=== PATIENT | male | born 1970 | race Caucasian/White ===

== ENCOUNTER 2023-12-14 13:05 | Emergency (ER) | payer BC ==
[2023-12-14] MEDS ORDERED: HYDROCODONE/APAP 10/325 TAB ONE (13:56)
[2023-12-14] MEDS ORDERED: dexAMETHasone 10 MG/ML VIAL ONE (13:56)
--- NOTE | 2023-12-14 14:04 | RAD REPORT ---
EXAM DESCRIPTION: CT - Spine Lumbar Wo Con - 12/14/2023 1:53 pm CLINICAL HISTORY: Radiculopathy. PAIN COMPARISON: No comparisons TECHNIQUE: Axial noncontrast CT imaging of the lumbar spine was performed with coronal and sagittal re-formatted images. All CT scans are performed using dose optimization technique as appropriate and may include automated exposure control or mA/KV adjustment according to patient size. FINDINGS: No acute lumbar spine fracture seen. No aggressive marrow pattern or malalignment. Paraspinal tissues are normal in thickness. No paraspinal abscess or hematoma seen. Probable disc herniation at L4-5 resulting in moderate central canal stenosis. This is incompletely a ssessed on CT study. IMPRESSION: No acute lumbar spine finding. Probable L4-5 disc herniation with central canal narrowing. Nonemergent MRI lumbar spine followup wou ld be suggested.
--- NOTE | 2023-12-14 14:11 | ER ---
Nurse's Notes [facility] Name: Zainab Tan Jr Age: 53 yrs Sex: Male : 1970 Arrival Date: 12/14/2023 Time: 13:05 Bed DX4 Private MD: Diagnosis: L4-L5 disc herniation;Chronic back pain Presentation: 12/13 13:31 Chief complaint: Patient states: back pain has been going on awhile but has gotten ko1 worse over the last 2 weeks. Coronavirus screen: At this time, the client does not indicate any symptoms associated with coronavirus-19. Ebola Screen: No symptoms or risks identified at this time. Initial Sepsis Screen: Does the patient meet any 2 criteria? No. Patient's initial sepsis screen is negative. Does the patient have a suspected source of infection? No. Patient's initial sepsis screen is negative. Risk Assessment: Do you want to hurt yourself or someone else? Patient reports no desire to harm self or others. Onset of symptoms is unknown. 13:31 Method Of Arrival: Ambulatory ko1 13:31 Acuity: BILLY 4 ko1 Triage Assessment: 13:35 General: Appears uncomfortable, Behavior is calm, cooperative, appropriate for age. ko1 Pain: Complains of pain in right low back. Musculoskeletal: Circulation, motion, and sensation intact. Capillary refill < 3 seconds, Range of motion: intact in all extremities. Historical: - Allergies: 13:35 No Known Allergies; ko1 - Home Meds: 13:35 None [Active]; ko1 - PMHx: 13:35 None; ko1 - PSHx: 13:35 None; ko1 - Immunization history:: Adult Immunizations unknown. - Infectious Disease History:: Denies. - Social history:: Smoking status: Patient denies any tobacco usage or history of. Screenin:16 [facility] ED Fall Risk Assessment (Adult) History of falling in the last 3 months, as6 including since admission No falls in past 3 months (0 pts) Confusion or Disorientation No (0 pts) Intoxicated or Sedated No (0 pts) Impaired Gait No (0 pts) Mobility Assist Device Used Yes (1 pt) Altered Elimination No (0 pt) Score/Fall Risk Level 0 - 2 = Low Risk Oriented to surroundings, Maintained a safe environment, Educated pt \T\ family on fall prevention, incl call for assistance when getting out of bed, Assessed \T\ reinforced patient's understanding of fall precautions. Abuse screen: Denies threats or abuse. Denies injuries from another. Nutritional screening: No deficits noted. Tuberculosis screening: No symptoms or risk factors identified. Assessment: 14:19 Reassessment: Patient appears in no apparent distress at this time. as6 Vital Signs: 13:31 BP 146 / 103; Pulse 73; Resp 16; Temp 97; Pulse Ox 100% ; ko1 14:19 BP 138 / 90; Pulse 61; Resp 15 S; Pulse Ox 100% on R/A; as6 ED Course: 13:07 Patient arrived in ED. mg5 13:15 Yajaira Jo FNP is PHCP. jh7 13:15 Dewayne Chambers DO is Attending Physician. jh7 13:35 Triage completed. ko1 13:35 Arm band placed on right wrist. Patient placed in waiting room, Patient notified of ko1 wait time. 13:55 CT Lumbar Spine Wo Con In Process Unspecified. EDMS 14:18 Call light in reach. Provided Education on: rx teaching, follow up. as6 14:18 No provider procedures requiring assistance completed. Patient did not have IV access as6 during this emergency room visit. Administered Medications: 14:11 Drug: [place] PO 10 mg-325 mg 1 tabs PO once Route: PO; as6 14:16 Follow up: Response: No adverse reaction as6 14:11 Drug: Dexamethasone IM 10 mg IM once Route: IM; Site: left deltoid; as6 14:16 Follow up: Response: No adverse reaction as6 Medication: 14:18 VIS not applicable for this client. as6 Outcome: 14:11 Discharge ordered by . [facility] 14:18 Discharged to home ambulatory, with significant other, as6 14:18 Condition: stable 14:18 Discharge instructions given to patient, significant other, Instructed on discharge instructions, follow up and referral plans. medication usage, Demonstrated understanding of instructions, follow-up care, medications, Prescriptions given X 3, 14:19 Patient left the ED. as6 Signatures: Dispatcher [employer] DEEID Sy Crocker RN RN as6 Yajaira Jo FNP FNP 7 Sailaja Horowitz RN RN ko1 Ami Blakely mg5
--- NOTE | 2023-12-14 14:11 | EDPHYS ---
Physician Documentation [facility] Name: Zainab Tan Jr Age: 53 yrs Sex: Male : 1970 Arrival Date: 12/14/2023 Time: 13:05 Bed DX4 Private MD: ED Physician Dewayne Chambers HPI: 12/13 13:31 This 53 yrs old Male presents to ER via Ambulatory with complaints of Back Pain. [facility] 13:31 55-year-old male with no significant past medical history presents to the ER for [facility] back pain. Reports that he has had intermittent back pain for the past few years, but it became severe this last week. He reports that he was also seen at a chiropractor 1 week ago. Denies radiation, numbness, tingling, or loss of bowel or bladder. Reports that the pain is causing difficulty with walking and position changes.. Historical: - Allergies: 13:35 No Known Allergies; ko1 - Home Meds: 13:35 None [Active]; ko1 - PMHx: 13:35 None; ko1 - PSHx: 13:35 None; ko1 - Immunization history:: Adult Immunizations unknown. - Infectious Disease History:: Denies. - Social history:: Smoking status: Patient denies any tobacco usage or history of. ROS: 13:31 Constitutional: Per HPI [facility] 13:31 Back: Positive for decreased range of motion, pain at rest, pain with movement, Negative for injury or acute deformity, Exam: 13:31 Constitutional: This is a well developed, well nourished patient who is awake, alert, jh7 and in no acute distress. Head/Face: Normocephalic, atraumatic. Neck: Trachea midline, no thyromegaly or masses palpated, and no cervical lymphadenopathy. Supple, full range of motion without nuchal rigidity, or vertebral point tenderness. No Meningismus. Cardiovascular: Regular rate and rhythm with a normal S1 and S2. No gallops, murmurs, or rubs. Normal PMI, no JVD. No pulse deficits. Respiratory: Lungs have equal breath sounds bilaterally, clear to auscultation and percussion. No rales, rhonchi or wheezes noted. No increased work of breathing, no retractions or nasal flaring. Abdomen/GI: Soft, non-tender, with normal bowel sounds. No distension or tympany. No guarding or rebound. No evidence of tenderness throughout. Skin: Warm, dry with normal turgor. Normal color with no rashes, no lesions, and no evidence of cellulitis. MS/ Extremity: Pulses equal, no cyanosis. Neurovascular intact. Full, normal range of motion. Neuro: Awake and alert, GCS 15, oriented to person, place, time, and situation. Cranial nerves II-XII grossly intact. Motor strength 5/5 in all extremities. Sensory grossly intact. Cerebellar exam normal. Antalgic gait. 13:31 Back: pain, that is moderate, of the lumbar area, ROM is painful, with all movement, CVA tenderness, is absent, vertebral tenderness, is not appreciated, 13:31 Neuro: Orientation: to person, place, time \T\ situation. Mentation: is normal, Memory: [facility] is normal, Cranial nerves: grossly normal, Cerebellar function: is grossly normal, Vital Signs: 13:31 BP 146 / 103; Pulse 73; Resp 16; Temp 97; Pulse Ox 100% ; ko1 14:19 BP 138 / 90; Pulse 61; Resp 15 S; Pulse Ox 100% on R/A; as6 MDM: 13:15 Patient medically screened. [facility] 14:15 Differential diagnosis: chronic back pain, Osteoarthritis ruptured disc. Data reviewed: [facility] vital signs, nurses notes, radiologic studies, CT scan. I considered the following discharge prescriptions or medication management in the emergency department Medications were administered in the Emergency Department. See MAR. Counseling: I had a detailed discussion with the patient and/or guardian regarding the historical points, exam findings, and any diagnostic results supporting the discharge/admit diagnosis, the need for outpatient follow up, a orthopedic surgeon, to return to the emergency department if symptoms worsen or persist or if there are any questions or concerns that arise at home. Response to treatment: the patient's symptoms have mildly improved after treatment. 12/13 13:29 Order name: CT Lumbar Spine Wo Con; Complete Time: 14:07 [facility] Administered Medications: 14:11 Drug: [place] PO 10 mg-325 mg 1 tabs PO once Route: PO; as6 14:16 Follow up: Response: No adverse reaction as6 14:11 Drug: Dexamethasone IM 10 mg IM once Route: IM; Site: left deltoid; as6 14:16 Follow up: Response: No adverse reaction as6 Disposition: 17:29 I was immediately available on-site in the Emergency Department for consultation in the ms3 care of the patient. Disposition Summary: 12/14/23 14:11 Discharge Ordered Notes: Location: Home [facility] Problem: chronic [facility] Symptoms: have worsened [facility] Condition: Stable jh7 Diagnosis - L4-L5 disc herniation jh7 - Chronic back pain [facility] Followup: [facility] - With: Private Physician - When: 2 - 3 days - Reason: Further diagnostic work-up Discharge Instructions: - Discharge Summary Sheet [facility] - Herniated Disk [facility] Forms: - Work release form as6 - Medication Reconciliation Form [facility] - Thank You Letter [facility] - Prescription Opioid Use [facility] - Patient Portal Instructions [facility] - Leadership Thank You Letter [facility] Prescriptions: - Zanaflex 4 mg Oral Tablet - take 1 tablet ORAL route every 8 hours As needed; 20 tablet; Refills: 0, [facility] Product Selection Permitted - Tramadol 50 mg Oral Tablet - take 1 tablet ORAL route every 8 hours as needed; 12 tablet; Refills: 0, [facility] Product Selection Permitted - Medrol (Chay) 4 mg Oral Tablets, Dose Pack - take 1 tablet ORAL route as directed - follow package instructions; 1 packet; [facility] Refills: 0, Product Selection Permitted Signatures: Dispatcher [employer] EDMS Dewayne Chambers DO DO ms3 Sy Crocker, RN RN as6 Yajaira Jo, MAIL CARRIER AND CLERK MAIL CARRIER AND CLERK jh7 Sailaja Horowitz RN RN ko1 Corrections: (The following items were deleted from the chart) 13:29 13:29 Spine Lumbar Wo Con+CT.RAD.BRZ ordered. EDMS EDMS
[2023-12-14 14:34] VITALS: BP 138/90; TEMP 97; O2SAT 100
== END 2023-12-14 14:19 | disposition home or self-care (01) ==
LOC: ER 13:05
DX: M51.26 Other intervertebral disc displacement, lumbar region (principal)
CPT/HCPCS: 72131; 96372; 99284; J1100